=== PATIENT | female | born 1975 | race Caucasian/White ===

== ENCOUNTER 2024-05-21 11:11 | Emergency (ER) | payer BC ==
[~2024-05-21] VITALS: Ht 170.2 cm; Wt 75.7 kg
[2024-05-21 12:14] LABS: BILIRUBIN,URINE NEGATIVE (Neg); CLARITY,URINE CLEAR (Clear); COLOR,URINE YELLOW (Yellow); GLUCOSE, URINE NEGATIVE (Neg); KETONES,URINE NEGATIVE (Neg); LEUKOCYTE ESTERASE ,URINE NEGATIVE (Neg); NITRITES, URINE NEGATIVE (Neg); OCCULT BLOOD,URINE NEGATIVE (Neg); PROTEIN,URINE NEGATIVE (Neg)
[2024-05-21 12:20] LABS: BASOPHILS % (AUTO) 0.2 % (0-1); EOSINOPHILS # (AUTO) 0.1 X10'3 (0-0.9); EOSINOPHILS % (AUTO) 1.3 % (0-6); HEMATOCRIT 46.1 % (35.0-45.0); LYMPHOCYTES # (AUTO) 1.4 X10'3 (1.1-4.8); LYMPHOCYTES % (AUTO) 14.1 % (21-51); MEAN CORPUSCULAR HEMOGLOBIN 31.7 PG (27.0-31.0); MEAN CORPUSCULAR HGB CONC 34.6 g/dL (33.0-36.5); MEAN CORPUSCULAR VOLUME 91.6 FL (78-98); MEAN PLATELET VOLUME 7.2 FL (7.4-10.4); MONOCYTES # (AUTO) 0.9 X10'3 (0-0.9); MONOCYTES % (AUTO) 8.9 % (2-12); NEUTROPHILS # (AUTO) 7.5 X10'3 (1.8-7.7); NEUTROPHILS % (AUTO) 75.5 % (42-75); PLATELET COUNT 318 X10'3 (140-440); RED BLOOD COUNT 5.03 X10'6 (4.20-5.60); RED CELL DISTRIBUTION WIDTH 12.6 % (11.5-14.5)
[2024-05-21 12:21] LABS: UA COLLECTION TYPE CLN CATCH MIDSTREAM
[2024-05-21 12:34] LABS: ALANINE AMINOTRANSFERASE 21 U/L (12-78); ALBUMIN 4.1 G/DL (3.4-5.0); ALBUMIN/GLOBULIN RATIO 1.1 (1.1-1.5); ALKALINE PHOSPHATASE 67 IU/L (46-116); ANION GAP 6 (8-16); ASPARTATE AMINO TRANSFERASE 9 U/L (10-37); BILIRUBIN,TOTAL 1.1 MG/DL (0.1-1.0); BLOOD UREA NITROGEN 14 MG/DL (7-18); CALCIUM 9.5 MG/DL (8.5-10.1); CHLORIDE 101 MMOL/L (99-107); GLUCOSE 85 MG/DL (70-104); POTASSIUM 4.6 MMOL/L (3.5-5.1); SODIUM 138 MMOL/L (135-145); TOTAL CARBON DIOXIDE 31.2 MMOL/L (24-32); TOTAL PROTEIN 7.8 G/DL (6.4-8.2); eCRCL 68 ML/MIN; eGFR 59 ML/MIN
[2024-05-21 12:35] LABS: URINE HCG NEGATIVE (NEG)
[2024-05-21 12:36] LABS: LIPASE 69 U/L (16-77)
[2024-05-21] MEDS: HYDROcodone/acetaminophen 10/325mg tab PO ONE (13:33)
[2024-05-21] MEDS ORDERED: HYDR-3965 PO (14:17)
[2024-05-21 14:25] VITALS: BP 106/72; PULSE 95; RESP 18; TEMP 98.2; O2SAT 100
== END 2024-05-21 14:27 | disposition home or self-care (01) ==
LOC: ER 11:12
DX: N83.202 Unspecified ovarian cyst, left side (principal); R10.9 Unspecified abdominal pain
CPT/HCPCS: 36415; 76856; 80053; 81003; 81025; 83690; 85025; 93976; 99284